=== PATIENT | male | born 1985 | race Caucasian/White ===

== ENCOUNTER 2023-09-16 11:59 | Emergency (ER) | payer OTHER, MEDICAID ==
[~2023-09-16] VITALS: Ht 160 cm; Wt 56.7 kg
[2023-09-16 12:22] VITALS: BP_SYST 140; PULSE 102; RESP 18; TEMP 97.1; O2SAT 97
[2023-09-16] MEDS: ACETAMINOPHEN 325 MG TABLET PO ONE (13:38)
[2023-09-16 16:09] VITALS: BP_SYST 140; PULSE 102; RESP 18; TEMP 97.1; O2SAT 97
== END 2023-09-16 16:00 | disposition home or self-care (01) ==
LOC: SED 11:59
DX: S80.11XA Contusion of right lower leg, initial encounter (principal); R51.9 Headache, unspecified; W10.8XXA Fall (on) (from) other stairs and steps, initial encounter; Y93.89 Activity, other specified; Y92.89 Other specified places as the place of occurrence of the external cause; Y99.8 Other external cause status
CPT/HCPCS: 70450-TC; 72125-TC; 73590; 99284